=== PATIENT | male | born 1965 | race Caucasian/White ===

== ENCOUNTER 2018-02-14 07:12 | Observation (INO) ==
[2018-02-14] MEDS ORDERED: Pantoprazole Inj 40 MG Vial IV.PUSH ONE (07:42)
--- NOTE | 2018-02-14 07:46 | ED ---
HPI General Chief Complaint: Chest Pain Stated Complaint: medical Time Seen by Provider: 02/14/18 07:37 Source: patient Mode of arrival: ambulatory Limitations: no limitations History of Present Illness MD complaint: Reports chest pain STEMI Alert: No Onset (ago): minute(s) Duration: constant Onset: awoke with symptoms Pain location: Reports substernal Severity: severe Quality: Reports other (burning) Pain radiation: Reports other (The pain radiates from the epigastrium up into the chest) Relieving factors: nothing Exacerbating factors: nothing Context: Reports other (History of dyspepsia. Not currently taking medications. ) Associated symptoms: Reports nausea and vomiting Treatments prior to arrival chest pain: Reports none Related Data Home Medications Medication Instructions Recorded Confirmed albuterol sulfate [ProAir HFA] 2 puff INHALATION Q4-6H PRN 02/14/18 02/14/18 baclofen 10 mg PO TID 02/14/18 02/14/18 fluoxetine [Prozac] 40 mg PO DAILY 02/14/18 02/14/18 gabapentin 400 mg PO BID 02/14/18 02/14/18 hydroxyzine HCl 50 mg PO QID PRN 02/14/18 02/14/18 levothyroxine 50 mcg PO DAILY 02/14/18 02/14/18 lisinopril 20 mg PO DAILY 02/14/18 02/14/18 loratadine 10 mg PO DAILY 02/14/18 02/14/18 mirtazapine 30 mg PO DAILY 02/14/18 02/14/18 morphine 30 mg PO Q12H 02/14/18 02/14/18 nitroglycerin [Nitrostat] 0.4 mg SUBLINGUAL Q5-15M PRN 02/14/18 02/14/18 ranitidine HCl 300 mg PO DAILY 02/14/18 02/14/18 simvastatin 40 mg PO QPM 02/14/18 02/14/18 testosterone cypionate 100 mg IM Q2W 02/14/18 02/14/18 topiramate 25 mg PO BID 02/14/18 02/14/18 trazodone 150 mg PO DAILY 02/14/18 02/14/18 zolpidem 10 mg PO QPM 02/14/18 02/14/18 Allergies Allergy/AdvReac Type Severity Reaction Status Date / Time No Known Allergies Allergy Verified 02/14/18 07:34 Review of Systems ROS: all other systems reviewed are negative [facility] Medical History Medical History Chest pain (Acute) Surgical History Surgical History History of back surgery (Acute) History of facial surgery (Acute) Social History Social History Substance History: Active Abuse Smoking Status: Current every day smoker Tobacco Type: Cigarettes How Often Do You Have a Drink Containing Alcohol: Never Recent Travel in [facility] within the Last 8 Weeks: No Recent Out of Country Travel within the Last 8 Weeks: No Substance Abuse Detail Marijuana: Substance Use Status: Active Route Used Substance Abuse: Inhalation Immunization History Tetanus Immunization: Unsure Exam Const General: cooperative and healthy appearing Orientation: alert, awake and oriented x3 HENMT Head: normal to inspection, normocephalic and atraumatic Eyes General: appearance normal, both eyes and all related structures Conjunctivae: conjunctivae normal Sclera: sclerae normal EOM: EOM intact bilaterally Neck Neck: normal visual inspection and full ROM Chest Chest: normal inspection of the chest Resp Effort & Inspection: normal respiratory effort and able to speak in complete sentences Auscultation: clear to auscultation bilaterally Cardio Rate: regular rate Rhythm: regular rhythm Heart Sounds: S1 normal and S2 normal GI Inspection: normal to inspection Palpation: soft and tender in the epigastrum Back/Spine/Pelvis Cervical Spine: cervical ROM normal Thoracic/Lumbar Spine: thoraco-lumbar ROM normal Skin General: no rashes or lesions noted, turgor normal and dry skin Neuro General: alert, awake, oriented x3, moves all extremities and CN's II-XI intact bilaterally Extrem General: normal to inspection, full ROM and no pedal edema Psych Appearance: grossly normal Mental Status: mental status grossly normal Speech and Movement: speech and movement normal Mood: congruent mood Affect: normal affect Attitude: cooperative Thought Process: normal Thought Content: normal Judgment: judgment good Course Consultations Consultation #1: Dr. Pyle Time: 10:10 Initial Documented Vital Signs Temperature 97.9 F 02/14/18 07:21 Pulse Rate 51 L 02/14/18 07:21 Respiratory Rate 20 02/14/18 07:21 Blood Pressure 170/109 H 02/14/18 07:21 Pulse Oximetry 100 02/14/18 07:21 Last Documented Vital Signs Temperature 97.9 F 02/14/18 07:21 Pulse Rate 57 L 02/14/18 07:59 Respiratory Rate 20 02/14/18 07:59 Blood Pressure 166/83 H 02/14/18 07:59 Pulse Oximetry 100 02/14/18 07:59 Medical Decision Making MDM Narrative Medical decision making narrative: This patient presents with burning epigastric pain which radiates up into his chest. His symptoms are most likely GI in origin. Chest pain workup is in process including a lipase. He is being treated with IV Protonix. Compazine and Benadryl for his nausea and vomiting. The patient reports absolutely no improvement in his symptoms with the above treatment. He is complaining bitterly with a burning sensation in his epigastrium. He further relates that he took his usual morphine today for his back pain but vomited the morphine. I have ordered him a dose of oral morphine as well as a dose of Carafate. 9:40AM Patient continues to state that there has been absolutely no improvement in his symptoms. 10:10 AM The patient is being admitted to observation Medical Screen Exam Complete: Yes Emergency Medical Condition: Yes Differential Diagnosis Differential Diagnosis: Differential diagnosis of chest pain includes but is not limited to musculoskeletal pain, pulmonary embolism, acute coronary syndrome , pneumonia, pleurisy Lab Data Lab results reviewed: Yes I reviewed the patient's lab results. Result diagrams: 02/14/18 07:43 02/14/18 07:43 Lab Results 02/14/18 02/14/18 02/14/18 Range/Units 07:43 07:43 07:43 WBC 18.1 H (4.0-11.0) th/mm3 RBC 5.41 (4.50-5.90) mil/mm3 Hgb 16.0 (13.0-17.0) gm/dL Hct 47.7 (39.0-51.0) % MCV 88.2 (80.0-100.0) fL MCH 29.7 (27.0-34.0) pg MCHC 33.6 (32.0-36.0) % RDW 15.3 (11.6-17.2) % Plt Count 247 (150-450) th/mm3 MPV 8.6 (7.0-11.0) fL Neut % (Auto) 85.9 H (16.0-70.0) % Lymph % (Auto) 8.9 L (9.0-44.0) % Gilchrist % (Auto) 4.6 (0.0-8.0) % Eos % (Auto) 0.4 (0.0-4.0) % Baso % (Auto) 0.2 (0.0-2.0) % Neut # (Auto) 15.6 H (1.8-7.7) th/mm3 Lymph # (Auto) 1.6 (1.0-4.8) th/mm3 Gilchrist # (Auto) 0.8 (0.0-0.9) th/mm3 Eos # (Auto) 0.1 (0.0-0.4) th/mm3 Baso # (Auto) 0.0 (0.0-0.2) th/mm3 WBC Differential . Differential Comment Auto diff final Sodium 136 (136-145) meq/L Potassium 4.1 (3.5-5.1) meq/L Chloride 103 (98-107) meq/L Carbon Dioxide 22.5 (21.0-32.0) meq/L Anion Gap 11 (5-15) meq/L BUN 11 (7-18) mg/dL Creatinine 1.01 (0.60-1.30) mg/dL Estimated GFR 78 L (>89) mL/min Random Glucose 103 (74-106) mg/dL Calcium 9.1 (8.5-10.1) mg/dL Total Bilirubin 1.0 (0.2-1.0) mg/dL AST 26 (15-37) U/L ALT 26 (12-78) U/L Alkaline Phosphatase 98 (45-117) U/L Troponin I Less than 0.02 L (0.02-0.05) ng/mL Total Protein 7.9 (6.4-8.2) g/dL Albumin 3.6 (3.4-5.0) g/dL Lipase 136 (73-393) U/L Imaging Data Attestation: I personally reviewed and interpreted this imaging study as follows : Radiologist's impression: Chest X-Ray 02/14/18 07:38 CONCLUSION: Negative for acute process ECG Data EKG Prior to Arrival: No Attestation: I personally reviewed and interpreted this ECG as follows: (EKG shows a sinus rhythm with a rate of 51. No acute STT wave changes.) Discharge Plan Discharge Order Discharge Orders: ED Use Only Admit Order (Routine); Ordered 02/14/18 Ordered By: Martha Enriquez Physicians Team ED Provider: Martha Enriquez Primary Care Provider: UNKNOWN, Rxs /Orders / Referrals /Forms Prescriptions: No Action fluoxetine [Prozac] 40 mg Capsule 40 mg PO DAILY RF: 0 ranitidine HCl 300 mg Tablet 300 mg PO DAILY RF: 0 lisinopril 20 mg Tablet 20 mg PO DAILY RF: 0 gabapentin 400 mg Capsule 400 mg PO BID RF: 0 topiramate 25 mg Tablet 25 mg PO BID RF: 0 hydroxyzine HCl 50 mg Tablet 50 mg PO QID PRN (Reason: Anxiety) RF: 0 morphine 30 mg Tablet Extended Release 30 mg PO Q12H RF: 0 simvastatin 40 mg Tablet 40 mg PO QPM RF: 0 baclofen 10 mg Tablet 10 mg PO TID RF: 0 mirtazapine 30 mg Tablet 30 mg PO DAILY RF: 0 trazodone 150 mg Tablet 150 mg PO DAILY RF: 0 nitroglycerin [Nitrostat] 0.4 mg Tablet, Sublingual 0.4 mg SUBLINGUAL Q5-15M PRN (Reason: Chest Pain) RF: 0 zolpidem 10 mg Tablet 10 mg PO QPM RF: 0 albuterol sulfate [ProAir HFA] 90 mcg/actuation Hfa Aerosol Inhaler 2 puff INHALATION Q4-6H PRN (Reason: Shortness Of Breath) RF: 0 loratadine 10 mg Tablet 10 mg PO DAILY RF: 0 levothyroxine 50 mcg Capsule 50 mcg PO DAILY RF: 0 testosterone cypionate 200 mg/mL Kit 100 mg IM Q2W RF: 0 Status ED Status: Pending Admission
[2018-02-14 08:07] LABS: Baso % (Auto) 0.2 % (0.0-2.0); Eos # (Auto) 0.1 th/mm3 (0.0-0.4); Eos % (Auto) 0.4 % (0.0-4.0); Hematocrit 47.7 % (39.0-51.0); Lymph # (Auto) 1.6 th/mm3 (1.0-4.8); Lymph % (Auto) 8.9 % (9.0-44.0); Mean Corpuscular HGB Conc 33.6 % (32.0-36.0); Mean Corpuscular Hemoglobin 29.7 pg (27.0-34.0); Mean Corpuscular Volume 88.2 fL (80.0-100.0); Mean Platelet Volume 8.6 fL (7.0-11.0); Mono # (Auto) 0.8 th/mm3 (0.0-0.9); Mono % (Auto) 4.6 % (0.0-8.0); Neut # (Auto) 15.6 th/mm3 (1.8-7.7); Neut % (Auto) 85.9 % (16.0-70.0); Platelet Count 247 th/mm3 (150-450); Red Blood Count 5.41 mil/mm3 (4.50-5.90); Red Cell Distribution Width 15.3 % (11.6-17.2); White Blood Count 18.1 th/mm3 (4.0-11.0)
[2018-02-14 08:17] LABS: Albumin 3.6 g/dL (3.4-5.0); Anion Gap 11 meq/L (5-15); Aspartate Aminotransferase 26 U/L (15-37); Blood Urea Nitrogen 11 mg/dL (7-18); Calcium 9.1 mg/dL (8.5-10.1); Carbon Dioxide 22.5 meq/L (21.0-32.0); Chloride 103 meq/L (98-107); Glomerular Filtration Rate 78 mL/min (>89); Glucose,Random 103 mg/dL (74-106); Potassium 4.1 meq/L (3.5-5.1); Sodium 136 meq/L (136-145)
[2018-02-14 08:21] LABS: Alanine Aminotransferase 26 U/L (12-78); Alkaline Phosphatase 98 U/L (45-117); Total Protein 7.9 g/dL (6.4-8.2)
--- NOTE | 2018-02-14 08:44 | XR ---
EXAM DATE: 02/14/2018 8:31 AM EST AGE/SEX: 52 years / Male INDICATIONS: Mid chest pain and nausea. CLINICAL DATA: This is the patient's initial encounter. Patient reports that signs and symptoms have been present for 1 day and indicates a pain score of 10/10. MEDICAL/SURGICAL HISTORY: Chronic obstructive pulmonary disease. None. COMPARISON: . FINDINGS: A single AP view of the chest demonstrates the lungs to be symmetrically aerated without evidence of mass, infiltrate or effusion. The cardiomediastinal contours are unremarkable. Osseous structures a re intact. CONCLUSION: Negative for acute process Electronically signed by: Chico Perkins MD 02/14/2018 8:42 AM EST
[2018-02-14] MEDS ORDERED: Sucralfate Liq 1 GM/10 ML UDC PO ONE (08:46)
[2018-02-14] MEDS ORDERED: Morphine Sulfate Oral Liq 10 MG/0.5 ML Syringe PO ONE (08:46)
[2018-02-14] MEDS ORDERED: Morphine Inj 4 MG/ML Vial IV.PUSH ONE (09:51)
[2018-02-14] MEDS ORDERED: Bisacodyl 10 MG Supp RECTAL PRN (10:09)
[2018-02-14] MEDS ORDERED: Acetaminophen 325 MG Tablet PO PRN ×2 (10:09→13:47)
[2018-02-14] MEDS ORDERED: Promethazine 25 MG Supp RECTAL PRN (10:09)
[2018-02-14] MEDS: Pantoprazole Inj 40 MG Vial IV.PUSH SCH ×2 (10:30→22:24)
[2018-02-14] MEDS: Sod Chloride 0.9% Inj 1,000 ML IV.CONT SCH ×2 (10:30→20:25)
--- NOTE | 2018-02-14 13:25 | P.HPIM ---
History of Present Illness Primary Care Physician: UNKNOWN Chief Complaint: Chest pain with nausea and vomiting History of Present Illness: 52-year-old white male with a history of chronic neck and back pain on chronic narcotics, hyperlipidemia presents to the emergency room with acute onset of mid substernal chest pain radiating down to his upper abdominal area and which he describes as a sharp burning-like pain associated with nausea with episodes of nonbilious vomiting, diaphoresis and some mild shortness of breath. He reports this woke up him up from sleep this morning and due to the severity of his pain came to emergency for evaluation. Patient reports he did miss his dose of morphine last night as he was feeling fatigued and did did not feel he needed the medication. He usually takes it twice a day. He also reported vomiting his dose up this morning. He denies any cardiac history. He has not had a upper endoscopy done previously. He states that he has chronic intermittent loose stools and has not seen any blood or dark stools. While he was in the emergency room, he had another emesis episode despite even Protonix and Carafate. Review of Systems Constitutional: Reports as per HPI, Denies chills, Reports fatigue, Denies fever (s) and Denies headache(s) Eyes: Denies blurry vision, Denies change in vision and Denies eye pain Ears, Nose, Mouth, and Throat: Denies abnormal hearing, Denies headache(s), Denies mouth pain, Denies nasal congestion, Denies neck pain and Denies sore throat Cardiovascular: Reports as per HPI, Reports chest pain, Reports chest pain at rest, Denies pedal edema, Denies palpitations, Denies dyspnea and Denies orthopnea Respiratory: Denies cough, Denies dyspnea and Denies wheezing Gastrointestinal: Reports as per HPI, Reports abdominal pain (Epigastric), Denies hematochezia, Denies constipation, Denies dysphagia, Reports heartburn, Reports loose stools, Reports nausea, Denies odynophagia and Reports vomiting Comments: Chronic loose stools Musculoskeletal: Reports back pain, Denies myalgias, Reports arthralgias, Reports neck pain and Denies numbness Comments: Neck and back pain Skin/Breast: Denies new lesions and Denies rash Neurologic: Denies abnormal hearing, Denies headache(s), Denies focal weakness, Denies memory loss and Denies numbness Psychiatric: Denies anxiety, Denies depression and Denies memory loss Endocrine: Denies cold intolerance, Denies heat intolerance and Denies palpitations Hematologic/Lymphatic: Denies easy bleeding and Denies easy bruising PMF Medical History Medical History Chest pain (Acute) Chronic back pain (Chronic) Chronic neck pain (Chronic) Hyperlipidemia (Chronic) Hypothyroid (Chronic) Osteoarthritis (Chronic) Surgical History Surgical History History of back surgery (Chronic) History of facial surgery (Chronic) Family History Family History Mother Heart disease Brother Heart disease Social History Social History Substance History: Active Abuse Second Hand Smoke Exposure: No Smoking Status: Current every day smoker Tobacco Type: Cigarettes Packs Per Day: 1 Cigarettes Per Day: 20.0 How Often Do You Have a Drink Containing Alcohol: Never Recent Travel in [facility] within the Last 8 Weeks: No Recent Out of Country Travel within the Last 8 Weeks: No Substance Abuse Detail Marijuana: Substance Use Status: Active Route Used Substance Abuse: Inhalation Immunization History Tetanus Immunization: Unsure Medications and Allergies Allergies Allergy/AdvReac Type Severity Reaction Status Date / Time No Known Allergies Allergy Verified 02/14/18 07:34 Home Medications Medication Instructions Recorded Confirmed Type albuterol sulfate [ProAir HFA] 2 puff INHALATION Q4-6H PRN 02/14/18 02/14/18 History baclofen 10 mg PO TID 02/14/18 02/14/18 History fluoxetine [Prozac] 40 mg PO DAILY 02/14/18 02/14/18 History gabapentin 400 mg PO BID 02/14/18 02/14/18 History hydroxyzine HCl 50 mg PO QID PRN 02/14/18 02/14/18 History levothyroxine 50 mcg PO DAILY 02/14/18 02/14/18 History lisinopril 20 mg PO DAILY 02/14/18 02/14/18 History loratadine 10 mg PO DAILY 02/14/18 02/14/18 History mirtazapine 30 mg PO DAILY 02/14/18 02/14/18 History morphine 30 mg PO Q12H 02/14/18 02/14/18 History nitroglycerin [Nitrostat] 0.4 mg SUBLINGUAL Q5-15M PRN 02/14/18 02/14/18 History ranitidine HCl 300 mg PO DAILY 02/14/18 02/14/18 History simvastatin 40 mg PO QPM 02/14/18 02/14/18 History testosterone cypionate 100 mg IM Q2W 02/14/18 02/14/18 History topiramate 25 mg PO BID 02/14/18 02/14/18 History trazodone 150 mg PO DAILY 02/14/18 02/14/18 History zolpidem 10 mg PO QPM 02/14/18 02/14/18 History Active Medications: Active Medications Acetaminophen (Tylenol) 650 mg PO Q4H PRN PRN Reason: Temp > 100.4 Al Hydroxide/Mg Hydroxide (Milk Of Magnesia Liq) 30 ml PO Q12H PRN PRN Reason: Mild Constipation Bisacodyl (Dulcolax Supp) 10 mg RECTAL DAILY PRN PRN Reason: SEVERE CONSITIPATION Sodium Chloride (Ns Inj) 1,000 mls @ 100 mls/hr IV.CONT .Q10H [facility] Last Admin: 02/14/18 10:30 Dose: 100 mls/hr Lactulose (Lactulose Liq) 30 ml PO DAILY PRN PRN Reason: SEVERE CONSITIPATION Ondansetron HCl (Zofran Inj) 4 mg IV.PUSH Q6H PRN PRN Reason: NAUSEA OR VOMITING Ondansetron HCl (Zofran Odt) 4 mg PO Q6H PRN PRN Reason: NAUSEA OR VOMITING Pantoprazole Sodium (Protonix Inj) 40 mg IV.PUSH Q12H [facility] Last Admin: 02/14/18 10:30 Dose: Not Given Promethazine HCl (Phenergan Supp) 25 mg RECTAL Q6H PRN PRN Reason: NAUSEA OR VOMITING Promethazine HCl (Phenergan) 25 mg PO Q6H PRN PRN Reason: NAUSEA OR VOMITING Sennosides (Senokot) 17.2 mg PO Q12H PRN PRN Reason: Moderate Constipation Sodium Chloride (Ns Flush) 2 ml IV.FLUSH UNSCH PRN PRN Reason: FLUSH AFTER USING IV ACCESS Sodium Chloride (Ns Flush) 2 ml IV.FLUSH BID DOLORES Sodium Chloride (Ns Flush) 2 ml IV.FLUSH PRN PRN PRN Reason: FLUSH AFTER USING IV ACCESS Physical Exam Vital signs: Last Vital Signs Temp 97.9 F 02/14/18 07:21 Pulse 71 02/14/18 12:44 Resp 22 02/14/18 12:44 BP 158/69 H 02/14/18 12:44 Pulse Ox 97 02/14/18 12:44 Intake & Output 02/12/18 02/13/18 02/14/18 02/15/18 06:59 06:59 06:59 06:59 Weight 75.189 kg Narrative: GENERAL: Well-nourished well-developed white male no acute distress SKIN: Warm and dry. HEAD: Atraumatic. Normocephalic. EYES: Pupils equal and round. No scleral icterus. No injection or drainage. ENT: No nasal bleeding or discharge. Mucous membranes pink and moist. NECK: Trachea midline. No JVD. CARDIOVASCULAR: Regular rate and rhythm. RESPIRATORY: No accessory muscle use. Clear to auscultation. Breath sounds equal bilaterally. GASTROINTESTINAL: Abdomen soft, epigastric tenderness, no rebound guarding, nondistended. Normoactive bowel sounds MUSCULOSKELETAL: Extremities without clubbing, cyanosis, or edema. No obvious deformities. NEUROLOGICAL: Awake and alert to person place time situation. No obvious cranial nerve deficits. Motor grossly within normal limits. Five out of 5 muscle strength in the arms and legs. Normal speech. PSYCHIATRIC: Appropriate mood and affect; insight and judgment normal. Results Labs CBC & Chem 7: 02/14/18 07:43 02/14/18 07:43 Imaging Impressions Chest X-Ray 02/14/18 07:38 CONCLUSION: Negative for acute process ECG Attestation: I personally reviewed and interpreted this ECG as follows: Prior ECG tracings: not available for review Interpretation: EKG showed sinus bradycardia Caprini VTE Risk Assessment Caprini VTE Risk Assessment: No/Low Risk (score <= 1) Caprini Risk Assessment Model: Point Value = 1 Point Value = 2 Point Value = 3 Point Value = 5 Age 41-60 Minor surgery BMI > 25 kg/m2 Swollen legs Varicose veins or History of unexplained or recurrent spontaneous Oral contraceptives or hormone replacement Sepsis (< 1 month) Serious lung disease, including pneumonia (< 1 month) Abnormal pulmonary function Acute myocardial infarction Congestive heart failure (< 1 month) History of inflammatory bowel disease Medical patient at bed rest Age 61-74 Arthroscopic surgery Major open surgery (> 45 min) Laparoscopic surgery (> 45 min) Malignancy Confined to bed (> 72 hours) Immobilizing plaster cast Central venous access Age >= 75 History of VTE Family history of VTE Factor V Leiden Prothrombin [id number] Lupus anticoagulant Anticardiolipin antibodies Elevated serum homocysteine Heparin-induced thrombocytopenia Other congenital or acquired thrombophilia Stroke (< 1 month) Elective arthroplasty Hip, pelvis, or leg fracture Acute spinal cord injury (< 1 month) Prophylaxis Regimen: Total Risk Factor Score Risk Level Prophylaxis Regimen 0-1 Low Early ambulation 2 Moderate Order ONE of the following: *Sequential Compression Device (SCD) *Heparin 5000 units SQ BID 3-4 Higher Order ONE of the following medications: *Heparin 5000 units SQ TID *Enoxaparin/Lovenox 40 mg SQ daily (WT < 150 kg, CrCl > 30 mL/min) *Enoxaparin/Lovenox 30 mg SQ daily (WT < 150 kg, CrCl > 10-29 mL/min) *Enoxaparin/Lovenox 30 mg SQ BID (WT < 150 kg, CrCl > 30 mL/min) AND/OR *Sequential Compression Device (SCD) 5 or more Highest Order ONE of the following medications: *Heparin 5000 units SQ TID (Preferred with Epidurals) *Enoxaparin/Lovenox 40 mg SQ daily (WT < 150 kg, CrCl > 30 mL/min) *Enoxaparin/Lovenox 30 mg SQ daily (WT < 150 kg, CrCl > 10-29 mL/min) *Enoxaparin/Lovenox 30 mg SQ BID (WT < 150 kg, CrCl > 30 mL/min) AND *Sequential Compression Device (SCD) Assessment and Plan Plan 52-year-old white male with a history of chronic neck and back pain on chronic narcotics, hyperlipidemia, hypothyroidism presents with acute onset of substernal chest pain radiating to the epigastric area. Atypical chest pain/epigastric abdominal pain associated with intractable nausea and vomiting.-Placed on observation with IV fluid hydration. Antiemetics , continue PPI and Carafate given the emergency room. Complete serial cardiac enzymes with EKG. Nausea vomiting epigastric pain has not improved since presentation in the emergency room, will obtain a CT abdomen pelvis for further evaluation due to his leukocytosis. Consideration for evaluation for opiate withdrawal due to missing 2 doses of his chronic morphine. History of chronic neck and back pain with opiate dependenceresume home morphine. Leukocytosismay be due to stress reaction, no signs of fever or infection. Due to its associated epigastric pain, will obtain a CT abdomen pelvis for further evaluation. History of hypothyroidismresume Synthroid. History of hyperlipidemia and resumes statin.
[2018-02-14] MEDS ORDERED: Naloxone Inj 0.4 MG/ML Vial IV.PUSH PRN (13:47)
[2018-02-14] MEDS: Morphine Sulfate 30 MG SR Tablet PO SCH (14:07)
--- NOTE | 2018-02-14 15:45 | CT ---
EXAM DATE: 02/14/2018 3:28 PM EST AGE/SEX: 52 years / Male INDICATIONS: Epigastric pain with nausea and vomiting CLINICAL DATA: This is the patient's initial encounter. Patient reports that signs and symptoms have been present for 1 day and indicates a pain score of 6/10. MEDICAL/SURGICAL HISTORY: None. . Back Sx ORAL CONTRAST: No oral contrast ingested. RADIATION DOSE: 6.34 CTDI (mGy) COMPARISON: No prior exams available for comparison. TECHNIQUE: Multiple contiguous axial images were obtained through the abdomen and pelvis following b olus infusion of 97 ml Omnipaque 350 (iohexol) nonionic water-soluble contrast as a single exam dos e. No oral contrast ingested. Using automated exposure control and adjustment of the mA and/or kV ac cording to patient size, radiation dose was kept as low as reasonably achievable to obtain optimal di agnostic quality images. DICOM format image data is available electronically for review and comparis on. FINDINGS: Lower Lungs: The visualized lower lungs are clear. Liver: The liver has a homogeneous density without space-occupying lesion. There is no dilation of th e biliary tree. The gallbladder is unremarkable in appearance. Spleen: Homogeneous density without enlargement. Pancreas: Unremarkable without mass or calcification. Kidneys: Normal in size and shape. No evidence of mass or hydronephrosis. Adrenal Glands: Unremarkable. Aorta: The aorta and proximal iliac vessels are grossly unremarkable without aneurysmal dilation. Bowel/Mesentery: No oral contrast was given limiting the sensitivity of the exam. There are multiple loops of nondilated air-containing small bowel with several small air-fluid levels. There is no infl ammatory change or evidence of obstruction. The colon is unremarkable appearance. Abdominal Wall: Intact. Retroperitoneum: No evidence of adenopathy in the retrocrural, para-aortic, or deep pelvic regions. Bladder: Contours are smooth. Reproductive Organs: No abnormal masses or calcifications seen. Inguinal: The inguinal region is unremarkable without evidence of adenopathy. Bony Structures: Unremarkable. CONCLUSION: 1. Mildly nonspecific, nonobstructive bowel gas pattern which may represent mild ileus and/or gastro enteritis. There is no inflammatory change or obstruction. 2. Unremarkable gallbladder. Electronically signed by: Darren Chang MD 02/14/2018 3:44 PM EST
--- NOTE | 2018-02-14 17:00 | ECG ---
Date Performed: 02/14/2018 Time Performed: 14:16:54 PTAGE: 52 years EKG: Sinus rhythm INCOMPLETE RIGHT BUNDLE BRANCH BLOCK Cannot rule out INFERIOR MYOCARDIAL INFARCTION BORDERLINE ECG No significant change from prior electrocardiogram. PREVIOUS TRACING : 02/14/2018 07.19 DOCTOR: Keith Saez Interpretating Date/Time 02/14/2018 16:59:57
[2018-02-14] MEDS: Baclofen 10 MG Tablet PO SCH (18:24)
[2018-02-14] MEDS: Gabapentin 400 MG Capsule PO SCH (20:36)
[2018-02-14] MEDS: Topiramate 25 MG Tablet PO SCH (20:37)
--- NOTE | 2018-02-14 21:41 | ECG ---
Date Performed: 02/14/2018 Time Performed: 07:19:27 PTAGE: 52 years EKG: SINUS BRADYCARDIA POSSIBLE RIGHT VENTRICULAR CONDUCTION DELAY BORDERLINE ECG INTERPRETATION BASED ON A DEFAULT AGE OF 40 YEARS NO PREVIOUS TRACING DOCTOR: Kai Lynn Interpretating Date/Time 02/14/2018 21:39:35
[2018-02-14] MEDS: traZODone 50 MG Tablet PO SCH (22:23)
[2018-02-15] MEDS: Morphine Sulfate 30 MG SR Tablet PO SCH ×2 (01:18→13:58)
[2018-02-15] MEDS: Levothyroxine 50 MCG Tablet PO SCH (05:46)
[2018-02-15] MEDS: Sod Chloride 0.9% Inj 1,000 ML IV.CONT SCH ×2 (05:46→16:16)
[2018-02-15 07:23] LABS: Baso % (Auto) 0.2 % (0.0-2.0); Eos # (Auto) 0.1 th/mm3 (0.0-0.4); Eos % (Auto) 0.6 % (0.0-4.0); Hematocrit 40.9 % (39.0-51.0); Hemoglobin 14.1 gm/dL (13.0-17.0); Lymph # (Auto) 3.1 th/mm3 (1.0-4.8); Lymph % (Auto) 32.2 % (9.0-44.0); Mean Corpuscular HGB Conc 34.4 % (32.0-36.0); Mean Corpuscular Hemoglobin 30.1 pg (27.0-34.0); Mean Corpuscular Volume 87.5 fL (80.0-100.0); Mean Platelet Volume 8.6 fL (7.0-11.0); Mono # (Auto) 0.7 th/mm3 (0.0-0.9); Mono % (Auto) 7.6 % (0.0-8.0); Neut # (Auto) 5.7 th/mm3 (1.8-7.7); Neut % (Auto) 59.4 % (16.0-70.0); Platelet Count 183 th/mm3 (150-450); Red Blood Count 4.68 mil/mm3 (4.50-5.90); Red Cell Distribution Width 14.9 % (11.6-17.2); White Blood Count 9.7 th/mm3 (4.0-11.0)
[2018-02-15 07:53] LABS: Calcium 8.6 mg/dL (8.5-10.1); Carbon Dioxide 26.5 meq/L (21.0-32.0); Potassium 3.5 meq/L (3.5-5.1)
--- NOTE | 2018-02-15 08:09 | ECG ---
Date Performed: 02/14/2018 Time Performed: 20:46:09 PTAGE: 52 years EKG: Sinus rhythm POSSIBLE LEFT ATRIAL ENLARGEMENT INCOMPLETE RIGHT BUNDLE BRANCH BLOCK NONSPECIFIC T-WAVE ABNORMALITY BORDERLINE ECG No significant change from prior electrocardiogram. PREVIOUS TRACING : 02/14/2018 14.16 DOCTOR: Keith Saez Interpretating Date/Time 02/15/2018 08:07:34
[2018-02-15] MEDS: Topiramate 25 MG Tablet PO SCH ×2 (08:44→20:15)
[2018-02-15] MEDS: Baclofen 10 MG Tablet PO SCH ×3 (08:44→18:34)
[2018-02-15] MEDS: Loratadine 10 MG Tablet PO SCH (08:45)
[2018-02-15] MEDS: FLUoxetine 20 MG Capsule PO SCH (08:45)
[2018-02-15] MEDS: Gabapentin 400 MG Capsule PO SCH ×2 (08:45→20:15)
[2018-02-15] MEDS: Lisinopril 20 MG Tablet PO SCH (08:47)
[2018-02-15] MEDS ORDERED: Regadenoson Inj 0.4 MG/5 ML Syringe IV.PUSH ONE (10:42)
[2018-02-15] MEDS: Pantoprazole Inj 40 MG Vial IV.PUSH SCH ×2 (14:05→22:36)
[2018-02-15] MEDS: Morphine Inj 4 MG/ML Vial IV.PUSH PRN ×2 (16:02→19:52)
--- NOTE | 2018-02-15 17:04 | P.PNIM ---
Subjective Interval history: Patient seen and evaluated this morning at bedside. Patient reports that he is improved in his symptoms although notes that he does have a history of borderline diabetes with elevated blood pressure. Patient reports that he does occasionally have these episodes where he feels nauseous and vomits and says that this time he felt like an elephant was sitting on his chest. No current symptoms of chest pain or palpitations or chest pain at this moment. Explained to patient that these intermittent episodes of chest pain for which she has never been worked up in the past could be of cardiac nature and that he may be a suitable candidate for stress testing. Patient agrees and is willing to stay for Lexiscan scan Physical Exam Vital signs: Last Vital Signs Temp 98.5 F 02/15/18 15:42 Pulse 51 L 02/15/18 15:42 Resp 16 02/15/18 15:42 BP 147/80 H 02/15/18 15:42 Pulse Ox 98 02/15/18 15:42 Intake & Output 02/13/18 02/14/18 02/15/18 02/16/18 06:59 06:59 06:59 06:59 Intake Total 1300 / 1300 1000 / 1000 Output Total 750 / 750 Balance 550 / 550 1000 / 1000 Weight 75.189 kg general: No acute distress, conversational HEENT: EOMI, PERRLA Cardiovascular: S1/S2. No murmur rub or gallop noted. Regular in nature Respiratory: Clear to auscultation anteriorly and posteriorly without wheezing, rales, or rhonchi. No intercostal muscle use Gastroenterology: Soft, nontender, nondistended, no guarding or rebound appreciated. Positive bowel sounds noted Extremity: No lower examinee edema appreciated. No calf tenderness. Vascular: Capillary refill less than 2 seconds Results Labs CBC & Chem 7: 02/15/18 06:20 02/15/18 06:20 Assessment and Plan Plan Patient is a 52-year-old male with a pertinent past medical history of borderline diabetes and hypertension presenting with acute onset abdominal pain with nausea and chest pressure admitted for consideration of ACS rule out. Cardiology: Atypical chest pain, hypertension, hyperlipidemia Patient's presentation of nausea with reported vomiting may be his presenting feature for possible ACS. We will continue to monitor and continue workup with Lexiscan scan EKG reviewed with evidence of incomplete right bundle branch block. Troponin level negative x3 Given patient demographics a 52-year-old male with borderline diabetes (self- reported) and hyperlipidemia and hypertension with episodes of chest pressure intermittently (self-reported) Will obtain lexican scan to evaluate for evidence of coronary artery diseasedepending on results of test cardiology will be consulted if positive. Continue antihypertensive regimen Gastroenterology: Nausea/vomiting CT abdomen and pelvis unremarkable for acute intra-abdominal pathology Lipase level normal, calcium level normal. No evidence of obstruction at this time. Endocrinology: Hypothyroidism Continue levothyroxine Orthopedics: History of chronic neck and back pain Continue home opioid regimen morphine 30 mg p.o. every 12 outpatient regimen CODE STATUS: Full code DVT prophylaxis Disposition: MedSurg Diet: N.p.o. at midnight Progress Note: Quality VTE Deep Vein Thrombosis/Pulmonary Embolism Present on Admission: No
[2018-02-15] MEDS: traZODone 50 MG Tablet PO SCH (20:15)
[2018-02-16] MEDS: Morphine Inj 4 MG/ML Vial IV.PUSH PRN ×2 (00:03→10:34)
[2018-02-16] MEDS: Sod Chloride 0.9% Inj 1,000 ML IV.CONT SCH ×3 (01:49→13:47)
[2018-02-16] MEDS: Morphine Sulfate 30 MG SR Tablet PO SCH ×2 (01:49→13:47)
[2018-02-16 03:49] VITALS: BP 120/63; PULSE 49; TEMP 98.1; O2SAT 94
[2018-02-16 04:50] LABS: Hematocrit 39.5 % (39.0-51.0); Hemoglobin 13.2 gm/dL (13.0-17.0); Mean Corpuscular HGB Conc 33.4 % (32.0-36.0); Mean Corpuscular Hemoglobin 29.7 pg (27.0-34.0); Mean Platelet Volume 8.4 fL (7.0-11.0); Platelet Count 171 th/mm3 (150-450); Red Blood Count 4.44 mil/mm3 (4.50-5.90); Red Cell Distribution Width 15.2 % (11.6-17.2); White Blood Count 7.1 th/mm3 (4.0-11.0)
[2018-02-16 05:27] LABS: Anion Gap 3 meq/L (5-15); Blood Urea Nitrogen 7 mg/dL (7-18); Calcium 7.6 mg/dL (8.5-10.1); Carbon Dioxide 28.8 meq/L (21.0-32.0); Chloride 113 meq/L (98-107); Glomerular Filtration Rate Greater Than 89 mL/min (>89); Glucose,Random 76 mg/dL (74-106); Magnesium 1.8 mg/dL (1.5-2.5); Potassium 3.9 meq/L (3.5-5.1); Sodium 145 meq/L (136-145)
[2018-02-16] MEDS: Levothyroxine 50 MCG Tablet PO SCH (06:00)
[2018-02-16] MEDS: Baclofen 10 MG Tablet PO SCH ×2 (09:05→13:47)
[2018-02-16] MEDS: Lisinopril 20 MG Tablet PO SCH (09:05)
[2018-02-16] MEDS: Gabapentin 400 MG Capsule PO SCH (09:05)
[2018-02-16] MEDS: FLUoxetine 20 MG Capsule PO SCH (09:06)
[2018-02-16] MEDS: Loratadine 10 MG Tablet PO SCH (09:06)
[2018-02-16] MEDS: Topiramate 25 MG Tablet PO SCH (09:06)
[2018-02-16 10:13] VITALS: RESP 16
[2018-02-16] MEDS: Pantoprazole Inj 40 MG Vial IV.PUSH SCH (10:34)
--- NOTE | 2018-02-16 10:48 | ECG ---
Date Performed: 02/16/2018 Time Performed: 02:27:01 PTAGE: 52 years EKG: Sinus rhythm NONSPECIFIC INTRAVENTRICULAR CONDUCTION DELAY BORDERLINE ECG PREVIOUS TRACING : 11/07/2017 08.47 No significant change from previous tracing noted. DOCTOR: Ethan Leong Interpretating Date/Time 02/16/2018 10:47:03
[2018-02-16] MEDS ORDERED: Regadenoson Inj 0.4 MG/5 ML Syringe IV.PUSH ONE (12:08)
--- NOTE | 2018-02-16 13:21 | NM ---
EXAM DATE: 02/16/2018 1:17 PM EST AGE/SEX: 52 years / Male INDICATIONS:. . Chest pressure. Nausea and vomiting. CLINICAL DATA: This is the patient's initial encounter. Patient reports that signs and symptoms have been present for 1 day and indicates a pain score of 3/10. MEDICAL/SURGICAL HISTORY: Hypercholesterolemia. Hypothyroidism. Osteoarthritis. None. COMPARISON: . DOSE: 8.7 mCi Tc 99m Myoview at rest 26.2 mCi [id number] at stress 0.4 mg Lexiscan STRESS SYMPTOMS: None. EJECTION FRACTION: 63 % TECHNIQUE: The patient underwent pharmacologic stress with infusion of prescribed dose. Continuous ECG tracing was monitored during stress. Gated SPECT imaging was performed after stress and conventi onal SPECT imaging was performed at rest. The examination was performed on a SPECT/CT scanner, both attenuation and non-corrected datasets were reviewed. FINDINGS: The best perfused myocardium is the anterior lateral wall. Gut activity does obscure the inferior wal l. There are no fixed defects suggesting infarction. Do not see evidence for significant redistribution to suggest ischemia.. Ejection fraction is 62% with normal wall motion. RISK CATEGORY: Low (<1% Annual Motality Rate) CONCLUSION: 1. Negative for stress-induced ischemia. 2. Ejection fraction 63%. Electronically signed by: Chico Perkins MD Board Certified Radiologist 02/16/2018 1:20 PM EST
== END 2018-02-16 15:44 | disposition home or self-care (01) ==
LOC: NEDA 07:12 → NEPE 07:12 → NEPGCP 13:06
PROVIDERS: ADMIT Internal Medicine; ATTEND Internal Medicine